=== PATIENT | male | born 1955 | race Caucasian/White ===

== ENCOUNTER 2020-01-30 12:30 | Outpatient (CLI) | payer MEDICARE, SELFPAY ==
--- NOTE | ~2020-01-30 | CT_ITS ---
EXAMINATION: CT abdomen pelvis wo/w con DATE: 01/30/2020 13:12 INDICATION: Hematuria. TECHNIQUE: Computed tomography (CT) of the abdomen and pelvis was performed without and with intraven ous contrast using a total of 130 mL Omnipaque-350 intravenous contrast with a double-bolus technique for simultaneous opacification of the renal parenchyma and renal collecting system. Automated exposu re control and iterative reconstruction technique were employed. The dose-length product was 2586.06 mGy-cm. COMPARISON: None FINDINGS: The visualized portions of the lung bases demonstrate minimal atelectasis. No pleural effusion. The h eart size is normal. There are coronary artery calcifications. No pericardial effusion. There is diff use hepatic steatosis. The gallbladder, spleen, pancreas, and adrenal glands are normal. 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 There is no urolithia sis. The ureters are well opacified and are normal. There are foci of gas in the bladder lumen, likel y from recent instrumentation. The prostate is mildly enlarged. There is a small left inguinal hernia containing fat. There are no dilated loops of bowel. The appendix is normal. There are no pathologic ally enlarged lymph nodes. There is no free intraperitoneal fluid. There is severe lumbar spondylosis . IMPRESSION: 1. No etiology for hematuria. Reviewed, dictated and finalized at location A. IFIED PROSTHETIST
[2020-01-30 12:55] LABS: Estimated Glomerular Filt Rate > 60
== END 2020-01-30 12:31 | disposition home or self-care (01) ==
PROVIDERS: PCP Family Medicine; Visit Provider Urology
DX: R31.29 Other microscopic hematuria (principal)
CPT/HCPCS: 74178; Q9967

== ENCOUNTER 2020-02-21 10:44 | Outpatient (CLI) | payer MEDICARE, SELFPAY ==
--- NOTE | 2020-02-21 10:46 | ECG_ITS ---
Measurements Intervals [place] Rate: 83 P: 68 MN: 179 QRS: -18 QRSD: 94 T: 24 QT: 351 QTc: 413 Interpretive Statements SINUS RHYTHM VOLTAGE CRITERIA FOR LVH MINIMAL Q WAVES- HIGH LATERAL LEADS BORDERLINE ECG Electronically Signed On 02-21-2020 11:26:16 JALOUSIES INSTALLER by Joseph Jewell D.O.
== END 2020-02-21 10:45 | disposition home or self-care (01) ==
LOC: ANHSURGERY 10:46
PROVIDERS: PCP Family Medicine; Visit Provider Urology
DX: Z01.810 Encounter for preprocedural cardiovascular examination (principal); D49.4 Neoplasm of unspecified behavior of bladder; I10 Essential (primary) hypertension
CPT/HCPCS: 93005

== ENCOUNTER 2020-02-26 00:11 | Outpatient (CLI) | payer MEDICARE, SELFPAY ==
[2020-02-26 20:45] LABS: SARS-CoV-2 RNA PCR Negative
== END 2020-02-26 00:12 | disposition home or self-care (01) ==
LOC: ANHCOVIDDT 00:11
PROVIDERS: PCP Family Medicine; Visit Provider Urology
DX: Z01.812 Encounter for preprocedural laboratory examination (principal); Z20.828 Contact with and (suspected) exposure to other viral communicable diseases
CPT/HCPCS: 87635; C9803; U0003

== ENCOUNTER 2020-02-29 00:56 | Day surgery (SDC) | payer MEDICARE, SELFPAY ==
--- NOTE | 2020-02-19 16:57 | P.HP_ITS ---
History of Present Illness History of Present Illness Consent: Risks, benefits, and alternatives have been discussed and questions answered. Patient agrees to proceed with procedure. Chief complaint: bladder tumors Narrative: Lex Oliver is a 64 year old male Recently found to have microscopic hematuria during routine screening. CT scan of the abdomen and pelvis with without contrast showed normal upper urinary tracts but cystoscopy showed moderate-sized papillary neoplasm in the left posterior lateral bladder wall. After discussion of options, including observation and resection, he has elected for the latter. He is aware of the risk of this including, but not limited to, adverse cardiopulmonary events, postoperative bleeding, bladder perforation and failure to control is neoplasm. Review of Systems Cardiovascular: Cardiovascular: Denies chest pain, Denies lightheadedness, De nies palpitations and Denies dyspnea Respiratory: Respiratory: Denies dyspnea Gastrointestinal: Gastrointestinal: Denies diarrhea, Denies nausea and Denies vomiting Genitourinary: Genitourinary: Denies hematuria and Denies dysuria Endocrine: Endocrine: Denies palpitations PMFSH Past Medical History Medical History Deep vein thrombosis (~2013) Hypogonadotropic hypogonadism Squamous cell skin cancer Thrombophlebitis of deep veins of lower extremity (~2013) Surgical History Surgical History History of arthroplasty of right knee History of cataract extraction (~2008) Social History Social History Smoking status: Current every day smoker Alcohol intake: current Meds Home Medications and Allergies Home Medications Medication Instructions Recorded Confirmed Type buprenorphine 8.6 mg-naloxone 2.1 1 tablet SUBLINGUAL DAILY 03/27/19 History mg sublingual tablet duloxetine 60 mg capsule,delayed 60 mg PO DAILY 03/27/19 History release lisinopril 40 mg tablet 40 mg PO DAILY 30 Days #90 tablet 11/13/19 Rx tamsulosin 0.4 mg capsule See Rx Instructions .ROUTE 12/22/19 Rx .COMPLEX #90 cap brexpiprazole 0.5 mg tablet 0.5 mg PO DAILY 12/27/19 History testosterone 20.25 mg/1.25 gram 2 pump TOPICAL DAILY #150 gm 01/01/20 Rx (1.62 %) transdermal gel pump Allergies Allergy/AdvReac Type Severity Reaction Status Date / Time atropine Allergy Unknown Verified 10/24/19 12:39 Exam Const: General: no acute distress Resp: Effort & Inspection: normal respiratory effort GI: Inspection: non-distended GI Palp: No abdominal tenderness and No Guarding due to palpation present (GI) Auscultation: normal bowel sounds Assessment and Plan Assessment and plan (1) Malignant neoplasm of overlapping sites of bladder: Code(s): C67.8 - Malignant neoplasm of overlapping sites of bladder Status: Acute Assessment and Plan: * TURBT
[2020-02-20 08:27] VITALS: BMI 36.8
[2020-02-29] VITALS (8 sets, daily range): BP systolic 98–161; BP diastolic 68–89; PULSE 69–97; RESP 14–20; TEMP 36.2–36.7; O2SAT 93–97
--- NOTE | 2020-02-29 06:48 | WPDHPUPDATE1 ---
History and Physical Update Update Date/Time: 02/29/20 06:48 History and Physical has been reviewed, including an updated exam of the patient. There are NO changes in the patient's condition. Risks, benefits, and alternatives have been discussed and questions answered. Patient agrees to proceed with procedure.
[2020-02-29] MEDS: LACTATED RINGERS 1,000 ML 30 ML IV CONT (09:26)
--- NOTE | 2020-02-29 09:48 | WPDANESEPPF ---
Anes - Initial Pre Proc Eval Procedure: Operation Date: 02/29/20 11:00 Proposed Procedures p Trans Urethral Resection Bladder Tumor - Ephraim Cardenas MD Date/Time: 02/29/20 09:48 Surgeon: Ephraim Cardenas MD Pre Op Diagnosis: bladder tumors Patient Data Age: 64 Gender: M Height: 5 ft 9 in Weight: 119 kg Allergies Allergy/AdvReac Type Severity Reaction Status Date / Time No Known Allergies Allergy Verified 02/20/20 08:17 Home Medications Medication Instructions Recorded Confirmed Type buprenorphine 8.6 mg-naloxone 2.1 1 tablet SUBLINGUAL BID 03/27/19 02/20/20 History mg sublingual tablet duloxetine 60 mg capsule,delayed 60 mg PO BID 03/27/19 02/20/20 History release lisinopril 40 mg PO HS 02/20/20 02/20/20 History risperidone 0.5 mg PO HS 02/20/20 02/20/20 History tamsulosin 0.4 mg PO HS 02/20/20 02/20/20 History testosterone [Testosterone Aqueous] 100 mg IM MONTHLY 02/20/20 02/20/20 History Patient hx anesthesia problems: none Family hx anesthesia problems: none PMFSH Past Medical History Medical History Deep vein thrombosis (~2013) Hypogonadotropic hypogonadism Squamous cell skin cancer Thrombophlebitis of deep veins of lower extremity (~2013) Surgical History Surgical History History of arthroplasty of right knee History of cataract extraction (~2008) Social History Social History Smoking packs per day: 1 Smoking cigarettes per day: 20.0 Years smoked: 20 Smoking pack-years: 20.00 Smoking status: Current every day smoker Tobacco type: cigarettes Alcohol intake: current Drinks per week: 21 Alcohol use details: 21 BEERS/WEEK Substance use: current Substance use type: marijuana Other substance usage details: SMOKES MARIJUANA ONCE/DAY Living arrangements: with family Additional living arrangements comments: Spiritual care concerns: No Anes - Eval Final PreProcedure Day of Procedure 02/29/20 09:48 Patient weight: obese Heart: regular rate and rhythm Lungs: clear to auscultation Airway: Mallampati scale class III and special considerations poor opening and poor dentition Neurological: alert and oriented Last oral intake: >/= 8 hours ASA classification: III Emergent: no Anesthetic plan: proceed Anesthesia type and monitoring: general LMA and standard monitoring Informed Consent: The patient's anesthetic plan and its attendant risks and benefits were discussed with the patient/family/POA. Questions were solicited and answers provided to the satisfaction of the patient/family/POA.
[2020-02-29] MEDS: ceFAZolin 2 GM/D5W 50 ML 2 GM/50 ML BAG IVPB (10:50)
[2020-02-29] MEDS: LIDOCAINE HCL 2% GEL UROJET 10 ML PKG MUCOUS MEM (11:00)
[2020-02-29] MEDS: KETOROLAC 30 MG/ML VIAL (*BKC) IV PUSH (11:13)
--- NOTE | 2020-02-29 11:14 | PM.PROC ---
Procedure Note - Detailed Date of procedure: 02/29/20 Pre-op diagnosis: bladder tumors Post-op diagnosis: same Procedure performed: TURBT (small, 2-3cm) Description of procedure: The patient was brought to the operative suite where he is prepped and draped in a routine sterile fashion while in the dorsal lithotomy position. This is done after the uneventful administration of systemic sedation. 2% Xylocaine jelly is introduced intraurethrally and allowed to stand for an appropriate period of time. A 24F resectoscope sheath was placed in the bladder and the bladder is circumferentially inspected carefully. He has a single area of unusual hyperemic and slightly papillary growth in the left posterior lateral bladder wall. The remainder of the bladder shows no evidence of additional hyperemia or pancho neoplasm.. This area is resected in its entirety with an attempt made to include detrusor muscle for pathological evaluation of invasion. The base and periphery of this resected side is cauterized with a loop electrode. The bladder is emptied and the resectoscope was removed. The patient is taken to the recovery room having tolerated this procedure well. Anesthesia: GLMA Surgeon: Ephraim Cardenas MD Estimated blood loss (mL): 0 Drains: No Packing: No Pathology: yes Complications: No immediate complications Condition: stable Disposition: PACU
--- NOTE | 2020-02-29 12:04 | SUR.PHASEI ---
PT AWAKE, DENIES PAIN OR NAUSEA. READY TO SIT IN RECLINER AND HAVE A DRINK.
== END 2020-02-29 13:00 | disposition home or self-care (01) ==
PROVIDERS: PCP Family Medicine; Visit Provider Urology
PROC: 0TBB8ZZ Excision of Bladder, Via Natural or Artificial Opening Endoscopic (ICD-10-PCS; CPT 52234; principal; 2020-02-29 11:00)
DX: N30.00 Acute cystitis without hematuria (principal); N30.20 Other chronic cystitis without hematuria; Z86.718 Personal history of other venous thrombosis and embolism; F17.210 Nicotine dependence, cigarettes, uncomplicated; F12.90 Cannabis use, unspecified, uncomplicated; E66.9 Obesity, unspecified; Z68.38 Body mass index [BMI] 38.0-38.9, adult; Z85.51 Personal history of malignant neoplasm of bladder
CPT/HCPCS: 52234; 88305; 88307; A9270; J0131; J0690; J1100; J1885; J2370; J2405; J2704; J3010; J7120

== ENCOUNTER 2020-06-07 13:31 | Outpatient (CLI) | payer MEDICARE, SELFPAY | END 2020-06-07 13:32 | disposition home or self-care (01) | LOC: ANHCOVIDVC 13:31 | PROVIDERS: PCP Family Medicine | DX: Z23 Encounter for immunization (principal) | CPT/HCPCS: 0001A; 91300 ==

== ENCOUNTER 2020-06-28 13:33 | Outpatient (CLI) | payer MEDICARE, SELFPAY | END 2020-06-28 13:34 | disposition home or self-care (01) | LOC: ANHCOVIDVC 13:33 | PROVIDERS: PCP Family Medicine | DX: Z23 Encounter for immunization (principal) | CPT/HCPCS: 0002A; 91300 ==

== ENCOUNTER 2021-02-24 13:38 | Outpatient (CLI) | payer MEDICARE, SELFPAY ==
--- NOTE | 2021-02-24 13:45 | ECG_ITS ---
Measurements Intervals [place] Rate: 78 P: 27 NE: 183 QRS: -25 QRSD: 96 T: 15 QT: 353 QTc: 403 Interpretive Statements SINUS RHYTHM INCOMPLETE RIGHT BUNDLE BRANCH BLOCK DELAYED PRECORDIAL R/S TRANSITION VOLTAGE CRITERIA FOR LVH MINIMAL Q WAVES- HIGH LATERAL LEADS BASELINE ARTIFACT- II, III, AVR, AVL, AVF, V6 BORDERLINE ECG Electronically Signed On 02-24-2021 15:24:11 ENGAGEMENT SPECIALIST by Joseph Jewell D.O.
[2021-02-24 15:04] LABS: Anion Gap 5 mmol/L (8-16); Blood Urea Nitrogen 20 mg/dL (9-20); Calcium 9.4 mg/dL (8.4-10.2); Carbon Dioxide 29 mmol/L (22-30); Chloride 99 mmol/L (98-107); Estimated Glomerular Filt Rate 60; Glucose 90 mg/dL (65-110); Potassium 4.3 mmol/L (3.4-5.0); Sodium 133 mmol/L (137-145)
== END 2021-02-24 13:39 | disposition home or self-care (01) ==
LOC: ANHSURGERY 13:44
PROVIDERS: Anesthesiology; PCP Family Medicine; Visit Provider Urology
DX: Z01.818 Encounter for other preprocedural examination (principal); I10 Essential (primary) hypertension; Z79.899 Other long term (current) drug therapy
CPT/HCPCS: 36415; 80048; 93005

== ENCOUNTER 2021-02-28 01:50 | Day surgery (SDC) | payer MEDICARE, SELFPAY ==
[2021-02-19 13:37] VITALS: BMI 38.0
--- NOTE | 2021-02-19 13:42 | PC.NURSE ---
Report to the Outpatient Waiting Room, entrance under the green pavilion located off [facility], at time _0900__ on date _02/28/21__. OR Time: __1100___. - You and your visitor will be asked a series of questions to screen for COVID 19 for your protection. - A mask is required within the hospital. - Only one visitor is allowed at this time. Patient visitors will be guided where to wait when not with patient. Preoperative COVID Testing Requirements: No COVID Test needed if: (proof is required; if not received patient will have Rapid Test prior to entry) - Patient has received COVID Vaccine at least 14 days prior to procedure date or - Patient has positive COVID test result within last 90 days of surgery date. COVID Test needed if above criteria is not met If not COVID vaccinated a COVID test must be conducted within 72 hours of surgery and patient is asked to isolate self from time of testing until procedure. You will go to the [facility] for your COVID testing. The [facility] Testing site is located at the corner of [address] from [facility]. You will only be called if COVID results are positive and your surgeon may reschedule your elective surgery date. Patients may have clear liquids (water, carbonated beverages, clear teas, apple juice) until 3 hours prior to surgery (0800AM) with a maximum of 20 ounces. - No food from midnight until time of surgery - Infants may have breast milk until 4 hours before surgery, infant formula 6 hours prior to surgery. - Children will be allowed to drink immediately following surgery. If applicable, please bring a bottle or sippy cup to assist with drinking. Juice, water, soda, and popsicles are readily available. For infants on formula, please bring formula the day of surgery. Pacifiers are allowed. Take the following medications with a SIP of water the morning of surgery: ___DULOXETINE Medications to discontinue per physician N/A Date to take last dose Please no make-up, nail english, hairspray, perfume, deodorant, or body powder the day of surgery. No jewelry (including any body piercings) or valuables the day of surgery, leave them at home. Please take a shower or bath the night before, or the morning of, surgery with an antibacterial soap. Wear comfortable, loose fitting clothing. Children are encouraged to wear pajamas. - Jewelry must be removed prior to entering the operating room. Rings and piercings that are not removed may be cut off. - The hospital will not accept responsibility for valuables. - Please leave all valuables, including medications, at home the day of surgery. If you are going home after surgery, a licensed line haul driver must drive you home. - NO public transportation without another adult. - We recommend that an adult stay with you for 24 hours following discharge. - We also recommend that you do not drive, make important decision, drink alcoholic beverages, or take any drugs that were not prescribed by your health care provider for at least 24 hours after your discharge time. For Pediatric surgeries, we recommend two adults accompany the child home (only one inside the building at this time). Follow any additional instructions given to you from your surgeon. Telephone instructions given to ____PT and asked if any additional questions and then verbalized understanding. Patient advised to call surgeon office or pre surgery nurse liaison [phone] if any additional questions.
[2021-02-28] VITALS (12 sets, daily range): BP systolic 103–166; BP diastolic 48–92; PULSE 67–83; RESP 12–22; TEMP 36.6–37; O2SAT 95–100
--- NOTE | 2021-02-28 07:00 | WPDHPUPDATE1 ---
History and Physical Update Update Date/Time: 02/28/21 07:00 History and Physical has been reviewed, including an updated exam of the patient. There are NO changes in the patient's condition. Risks, benefits, and alternatives have been discussed and questions answered. Patient agrees to proceed with procedure.
--- NOTE | 2021-02-28 13:52 | WPDANESEPPF ---
Anes - Initial Pre Proc Eval Procedure: Operation Date: 02/28/21 15:00 Proposed Procedures p Trans Urethral Resection Bladder Tumor with Gemcitabine Instillation - Ephraim Cardenas MD Date/Time: 02/28/21 13:52 Surgeon: Ephraim Cardenas MD Pre Op Diagnosis: BPH with Obstruction Patient Data Age: 65 Gender: M Height: 1.73 m Weight: 117.2 kg Allergies Allergy/AdvReac Type Severity Reaction Status Date / Time No Known Allergies Allergy Verified 02/28/21 13:36 Home Medications Medication Instructions Recorded Confirmed Type buprenorphine 8.6 mg-naloxone 2.1 1 tablet SUBLINGUAL BID 03/27/19 02/28/21 History mg sublingual tablet duloxetine 60 mg capsule,delayed 60 mg PO BID 03/27/19 02/28/21 History release tamsulosin [Flomax] 0.4 mg QAM 12/06/20 02/28/21 History lisinopril 40 mg tablet 40 mg PO HS #90 tablet 01/02/21 02/28/21 Rx testosterone cypionate 200 mg/mL 200 mg IM MONTHLY 02/10/21 02/28/21 History intramuscular oil aripiprazole 5 mg HS 02/19/21 02/28/21 History hydrochlorothiazide 12.5 mg PO QAM 02/19/21 02/28/21 History Patient hx anesthesia problems: none Family hx anesthesia problems: none Results Review: All pre-operative results and documents have been reviewed as part of the pre-operative evaluation. [facility] Past Medical History Medical History (Updated 02/27/21 @ 13:12 by Juanjose Navarro DO) Anxiety Deep vein thrombosis (~2013) Depression Hepatitis C treated HTN (hypertension), benign Hypogonadotropic hypogonadism Squamous cell skin cancer Substance abuse Thrombophlebitis of deep veins of lower extremity (~2013) Surgical History Surgical History History of arthroplasty of right knee History of cataract extraction (~2008) Social History Social History (Updated 02/06/21 @ 09:32 by JOE Gonzalez) Smoking packs per day: 1 Smoking cigarettes per day: 20.0 Years smoked: 20 Smoking pack-years: 20.00 Smoking status: Current every day smoker Tobacco type: cigarettes Second hand tobacco smoke exposure: Yes Alcohol intake: current Drinks per week: 25 Alcohol use details: 21 BEERS/WEEK Substance use: former Substance use type: former substance user, marijuana, crack/cocaine and opiates Other substance usage details: SMOKES MARIJUANA ONCE/DAY Living arrangements: with family Additional living arrangements comments: Spiritual care concerns: No Anes - Eval Final PreProcedure Day of Procedure 02/28/21 13:52 Patient weight: obese Heart: regular rate and rhythm Lungs: clear to auscultation and normal air movement Airway: Mallampati scale class III Neurological: alert and oriented Last oral intake: >/= 8 hours ASA classification: III Emergent: no Anesthetic plan: proceed Anesthesia type and monitoring: general LMA and standard monitoring Results Review: All pre-operative results and documents have been reviewed as part of the pre-operative evaluation. Informed Consent: The patient's anesthetic plan and its attendant risks and benefits were discussed with the patient/family/POA. Questions were solicited and answers provided to the satisfaction of the patient/family/POA.
[2021-02-28] MEDS: LACTATED RINGERS 1,000 ML 30 ML IV CONT (14:03)
[2021-02-28] MEDS: ceFAZolin 2 GM/D5W 50 ML 2 GM/50 ML BAG IVPB (15:02)
[2021-02-28] MEDS: LIDOCAINE HCL 2% GEL UROJET 10 ML PKG MUCOUS MEM (15:25)
--- NOTE | 2021-02-28 15:34 | P.OP_ITS ---
Procedure Note - Detailed Date of Procedure 02/28/21 Pre-op Diagnosis Recurrent bladder tumor Post-op Diagnosis same Procedure Performed TURBT (medium 3-4cm) Surgeon Ephraim Cardenas MD Anesthesia general Description of Procedure The patient was brought to the operative suite where he is prepped and draped in a routine sterile fashion while in the dorsal lithotomy position. This is done after the uneventful administration of systemic sedation. 2% Xylocaine jelly is introduced intraurethrally and allowed to stand for an appropriate period of time. A 24F resectoscope sheath was placed in the bladder and the bladder is circumferentially inspected carefully. He has a single transitional cell carcinoma in the left posterior lateral bladder wall that is somewhat broad- based and measures ~3-4cm. This area is resected in its entirety with an attempt made to include detrusor muscle for pathological evaluation of invasion. The base and periphery of this resected side is cauterized with a loop electrode. The bladder is emptied and the resectoscope was removed. The patient is taken to the recovery room having tolerated this procedure well. Estimated Blood Loss 0 Drains No Packing No Pathology yes Complications No immediate complications Condition stable Disposition PACU
--- NOTE | 2021-02-28 15:44 | W.PM.PROC2 ---
Procedure Note - Detailed Date of Procedure 02/28/21 Pre-op Diagnosis Recurrent bladder tumor Post-op Diagnosis same Procedure Performed Gemcitabine instillation Surgeon Ephraim Cardenas MD Description of Procedure With the patient in the supine position, a 16F Whitney catheter is placed using sterile technique. Using a protective facemask, gown and double layer of gloves Gemcitabine 2gm in 100cc saline is administered through the catheter/into the bladder. The catheter is then plugged. Patient was instructed to lie supine x20min, then to roll both the left and right x20 min. each. Total dwell time will be 60 min., after which the bladder will be drained and catheter removed. Estimated Blood Loss 0 Drains Yes Packing No Pathology none sent Complications No immediate complications Condition stable Disposition PACU
[2021-02-28] MEDS: SODIUM CHLORIDE 0.9% IV 23.7 ML, GEMCITABINE HCL 1,000 MG BLADDER ×2 (15:59)
[2021-02-28] MEDS: fentaNYL CITRATE INJ (*CRX) 100 MCG/2 ML VIAL 25 MCG IV PUSH ×8 (16:15→16:45)
[2021-02-28] MEDS: oxyCODONE HCL (*CRX) 5 MG TAB IR PO (17:29)
--- NOTE | 2021-02-28 18:22 | SUR.PHASEII ---
1805: Patient's vitals are stable. He is unhooked from the monitors and just waiting for his ride.
== END 2021-02-28 18:30 | disposition home or self-care (01) ==
PROVIDERS: PCP Family Medicine; Visit Provider Urology
PROC: 0TBB8ZZ Excision of Bladder, Via Natural or Artificial Opening Endoscopic (ICD-10-PCS; CPT 52235; principal; 2021-02-28 15:00)
DX: N30.90 Cystitis, unspecified without hematuria (principal); N40.1 Benign prostatic hyperplasia with lower urinary tract symptoms; Z79.82 Long term (current) use of aspirin; R33.8 Other retention of urine; F41.8 Other specified anxiety disorders; I10 Essential (primary) hypertension; Z85.828 Personal history of other malignant neoplasm of skin; F17.210 Nicotine dependence, cigarettes, uncomplicated; E66.9 Obesity, unspecified; Z68.39 Body mass index [BMI] 39.0-39.9, adult; R31.29 Other microscopic hematuria
CPT/HCPCS: 52235; 51720; 88305; A9270; J0690; J1100; J2405; J2704; J3010; J7120; J9201

== ENCOUNTER 2023-03-15 00:03 | Day surgery (SDC) | payer MEDICARE, SELFPAY ==
[2023-02-26 08:47] VITALS: BMI 39.9
--- NOTE | 2023-03-12 09:11 | SUR.PREOP ---
Patient called regarding upcoming procedure. Reviewed preop instructions, appointment times, and procedure prep.
[2023-03-15 10:02] VITALS: BP 165/74; PULSE 84; RESP 18; TEMP 36.4; O2SAT 99; BMI 39.4
[2023-03-15] MEDS: LACTATED RINGERS 1,000 ML 150 ML IV CONT (10:05)
--- NOTE | 2023-03-15 10:40 | PM.HPGS ---
History of Present Illness History of Present Illness Consent: Risks, benefits, and alternatives have been discussed and questions answered. Patient agrees to proceed with procedure. Chief complaint: neoplasm screening Narrative: Lex Oliver is a 67 year old male Presents for screening colonoscopy. Patient's current weight appetite and bowel movements are normal. Patient denies abdominal pain. He has had no bleeding. Family history noncontributory. Previous colonoscopy 12 years ago was unremarkable. Review of Systems Review of Systems: Review of systems noncontributory. [facility] Past Medical History Medical History Anxiety Deep vein thrombosis (~2013) Depression Hepatitis C treated HTN (hypertension), benign Hypogonadotropic hypogonadism Squamous cell skin cancer Substance abuse Thrombophlebitis of deep veins of lower extremity (~2013) Surgical History Surgical History History of arthroplasty of right knee History of cataract extraction (~2008) Social History Social History Smoking packs per day: 1 Smoking cigarettes per day: 20.0 Years smoked: 6 Smoking pack-years: 6.00 Smoking status: Former smoker Tobacco type: cigarettes Second hand tobacco smoke exposure: Yes Alcohol intake: current Drinks per week: 21 Alcohol use details: 21 BEERS/WEEK Substance use: former Substance use type: former substance user, crack/cocaine and opiates Other substance usage details: no substance use for approximately 30 years Lack of Transportation: No Lack of Food: Never True Current Housing: I Have Housing Concerned About Future Housing: No Difficulty Paying Gas/Electric Bills: No Difficulty Paying for Meds: No Currently Unemployed: No Education: High School Diploma/GED Difficulty w/ Childcare or Family Care: No Living arrangements: with family Additional living arrangements comments: Spiritual care concerns: No Meds Home Medications and Allergies Home Medications Medication Instructions Recorded Confirmed Type buprenorphine 8.6 mg-naloxone 2.1 1 tablet sublingual BID 03/27/19 03/15/23 History mg sublingual tablet (Zubsolv) duloxetine 60 mg capsule,delayed 60 mg PO BID 03/27/19 03/15/23 History release (Cymbalta) aripiprazole 10 mg tablet 5 mg HS 02/19/21 03/15/23 History tamsulosin 0.4 mg capsule 0.4 mg PO DAILY #90 caps 11/24/22 03/15/23 Rx folic acid 1 mg tablet 1 mg PO DAILY #90 tabs 12/14/22 03/15/23 Rx hydrochlorothiazide 12.5 mg tablet See Rx Instructions .Route 01/18/23 03/15/23 Rx .COMPLEX #90 tabs lisinopril 40 mg tablet 40 mg PO HS #90 tabs 01/18/23 03/15/23 Rx Allergies Allergy/AdvReac Type Severity Reaction Status Date / Time No Known Allergies Allergy Verified 03/15/23 10:00 Vital Signs Vital Signs - 24 hr 03/15/23 10:02 Temperature 97.6 F Pulse Rate 84 Respiratory Rate 18 Blood Pressure 165/74 H Pulse Oximetry 99 Oxygen Delivery Room Air Exam Narrative: Physical exam reveals patient to be alert. Vital signs stable. HEENT exam is unremarkable. Patient is anicteric. Lungs are clear to auscultation and percussion. Heart is without murmur or extra sounds. Abdomen bowel sounds are present soft nontender with no organomegaly. Digital external rectal exam normal. Assessment and Plan Assessment and plan (1) Encounter for screening colonoscopy: Code(s): Z12.11 - Encounter for screening for malignant neoplasm of colon Status: Acute Assessment and Plan: Patient presents today for screening colonoscopy. He appears to be at average risk for colon polyps. Further recommendations may be given after endoscopy.
[2023-03-15 11:06] VITALS: BP 107/59; PULSE 80; RESP 20; O2SAT 95
[2023-03-15 11:16] VITALS: BP 110/65; PULSE 73; RESP 15; O2SAT 96
[2023-03-15 11:26] VITALS: BP 119/63; PULSE 69; RESP 20; O2SAT 96
== END 2023-03-15 11:40 | disposition home or self-care (01) ==
PROVIDERS: PCP Family Medicine; Visit Provider Internal Medicine Gastroenterology
PROC: 0DJD8ZZ Inspection of Lower Intestinal Tract, Via Natural or Artificial Opening Endoscopic (ICD-10-PCS; CPT 45378; principal; 2023-03-15 11:00)
DX: Z12.11 Encounter for screening for malignant neoplasm of colon (principal); I10 Essential (primary) hypertension; F41.9 Anxiety disorder, unspecified; F32.A Depression, unspecified; E23.0 Hypopituitarism; Z86.19 Personal history of other infectious and parasitic diseases; Z86.718 Personal history of other venous thrombosis and embolism; Z87.891 Personal history of nicotine dependence
CPT/HCPCS: G0121; J2704; J7120

== ENCOUNTER 2023-06-20 11:49 | Emergency (ER) | payer MEDICARE, SELFPAY ==
[2023-06-20 12:02] VITALS: BP 170/81; PULSE 85; RESP 20; TEMP 36.4; O2SAT 97
--- NOTE | 2023-06-20 12:04 | ED.DENTAL ---
HPI - Dental/Oral General Chief complaint: Dental/Oral Stated complaint: abcess tooth with swelling History of Present Illness HPI Narrative: NO FEVER. NO JAW SWELLING. NO NECK SWELLING. NO LIMITATION WITH SPEAKING OR SWALLOWING. HAS A HISTORY OF DENTAL CARIES. HAS NOT SEEN A DENTIST RECENTLY. Related Data Home Medications Medication Instructions Recorded Confirmed buprenorphine 8.6 mg-naloxone 2.1 1 tablet sublingual BID 03/27/19 03/15/23 mg sublingual tablet (Zubsolv) duloxetine 60 mg capsule,delayed 60 mg PO BID 03/27/19 03/15/23 release (Cymbalta) aripiprazole 10 mg tablet 5 mg HS 02/19/21 03/15/23 Allergies Allergy/AdvReac Type Severity Reaction Status Date / Time No Known Allergies Allergy Verified 03/15/23 10:00 Review of Systems Review of Systems: CONSTITUTIONAL: Denies fever, chills, or sweats. EYES: Denies visual changes, redness, or discharge. ENT: Denies rhinorrhea, congestion, sore throat, or otalgia.CONSTITUTIONAL: Denies fever, chills, or sweats. EYES: Denies visual changes, redness, or discharge. ENT: Denies rhinorrhea, congestion, sore throat, or otalgia. CARDIOVASCULAR: Denies chest pain, palpitations, or edema. RESPIRATORY: Denies cough or dyspnea. GASTROINTESTINAL: Denies abdominal pain, nausea, vomiting, or diarrhea. GENITOURINARY: Denies dysuria or hematuria. SKIN: Denies rash or itching. MUSCULOSKELETAL: Denies back pain, joint pain, or myalgia. NEUROLOGIC: Denies headache, numbness, or weakness. PSYCHIATRIC: Denies anxiety or depression. CARDIOVASCULAR: Denies chest pain, palpitations, or edema. RESPIRATORY: Denies cough or dyspnea. GASTROINTESTINAL: Denies abdominal pain, nausea, vomiting, or diarrhea. GENITOURINARY: Denies dysuria or hematuria. SKIN: Denies rash or itching. MUSCULOSKELETAL: Denies back pain, joint pain, or myalgia. NEUROLOGIC: Denies headache, numbness, or weakness. PSYCHIATRIC: Denies anxiety or depression. [facility] Past Medical History Medical History Anxiety Deep vein thrombosis (~2013) Depression Hepatitis C treated HTN (hypertension), benign Hypogonadotropic hypogonadism Squamous cell skin cancer Substance abuse Thrombophlebitis of deep veins of lower extremity (~2013) Surgical History Surgical History History of arthroplasty of right knee History of cataract extraction (~2008) Social History Social History Smoking packs per day: 1 Smoking cigarettes per day: 20.0 Years smoked: 6 Smoking pack-years: 6.00 Smoking status: Former smoker Tobacco type: cigarettes Second hand tobacco smoke exposure: Yes Alcohol intake: current Drinks per week: 21 Alcohol use details: 21 BEERS/WEEK Substance use: former Substance use type: former substance user, crack/cocaine and opiates Other substance usage details: no substance use for approximately 30 years Lack of Transportation: No Lack of Food: Never True Current Housing: I Have Housing Concerned About Future Housing: No Difficulty Paying Gas/Electric Bills: No Difficulty Paying for Meds: No Currently Unemployed: No Education: High School Diploma/GED Difficulty w/ Childcare or Family Care: No Living arrangements: with family Additional living arrangements comments: Spiritual care concerns: No Exam Narrative: GENERAL: Well-appearing, well-nourished, and in no acute distress. HEAD: Normocephalic, atraumatic. EYES: PERRLA and EOMI. ENT: Nares clear, no rhinorrhea or epistaxis. Mucous membranes moist. NO ONOFRE APICAL SWELLING, TOOTH TENDER TO PALPATION. NO FACIAL SWELLING. NO TRISMUS. ABLE TO OPEN MOUTH FULLY. NO NECK SWELLING OR DL'S ANGINA. NO ABSCESS TO BE DRAINED. no drooling, trismus, facial asymmetry or significant neck swelling NECK: Supple. CHEST: Clear to auscultation. No respira
== END 2023-06-20 12:16 | disposition home or self-care (01) ==
PROVIDERS: Emergency Provider Nurse Practitioner Family; PCP Family Medicine
DX: K08.89 Other specified disorders of teeth and supporting structures (principal); K02.9 Dental caries, unspecified; K04.7 Periapical abscess without sinus; Z87.891 Personal history of nicotine dependence; I10 Essential (primary) hypertension; F41.9 Anxiety disorder, unspecified; F32.A Depression, unspecified; Z86.718 Personal history of other venous thrombosis and embolism; Z85.828 Personal history of other malignant neoplasm of skin; Z96.651 Presence of right artificial knee joint
CPT/HCPCS: 99213; G0463

== ENCOUNTER 2024-06-12 11:46 | Outpatient (CLI) | payer MEDICARE, SELFPAY ==
--- NOTE | ~2024-06-12 | XR_ITS ---
Clinical Indication: Shortness of breath PA and lateral views of the chest: Comparison: 11/01/2013 Findings: The lungs are clear, without evidence of focal consolidation or pleural effusion. Cardiome diastinal silhouette is stable. Bones and soft tissues are unremarkable. Impression: Clear lungs. Reviewed, dictated and finalized at location . Impression: Clear lungs.
== END 2024-06-12 11:47 | disposition home or self-care (01) ==
LOC: GOSHIMG 11:47
PROVIDERS: PCP Nurse Practitioner Family; Visit Provider Nurse Practitioner Family
DX: R06.02 Shortness of breath (principal)
CPT/HCPCS: 71046